=== PATIENT | female | born 1980 | race Two or more races ===

== ENCOUNTER 2017-08-07 19:07 | Emergency (ER) | payer MEDICAID ==
[~2017-08-07] VITALS: Ht 167.6 cm; Wt 72.6 kg
[2017-08-07 19:52] VITALS: Ht 167.6 cm; Wt 72.6 kg
[2017-08-08 00:37] VITALS: BP 140/89
== END 2017-08-08 00:37 | disposition home or self-care (01) ==
LOC: ED 19:07
DX: S92.352A Displaced fracture of fifth metatarsal bone, left foot, initial encounter for closed fracture (principal); S02.32XA Fracture of orbital floor, left side, initial encounter for closed fracture; Y04.8XXA Assault by other bodily force, initial encounter; Y93.89 Activity, other specified; Y92.89 Other specified places as the place of occurrence of the external cause; Y99.8 Other external cause status
CPT/HCPCS: Q0092

== ENCOUNTER 2019-01-13 13:56 | Emergency (ER) | payer MEDICAID ==
[~2019-01-13] VITALS: Ht 160 cm; Wt 78.5 kg
[2019-01-13 14:00] VITALS: Ht 160 cm; Wt 78.5 kg
[2019-01-13 14:43] LABS: BASOPHIL % 1.5 % (0-2); PLATELET COUNT 184 x10^3mcL (130-400); RED CELL DISTRIBUTION WIDTH 12.6 % (11.5-14.5)
[2019-01-13 14:50] LABS: CALCIUM 8.8 mg/dL (8.5-10.1); CARBON DIOXIDE 26.8 mmol/L (21-32); CHLORIDE SERUM 104 mmol/L (98-107); CREATININE SERUM 0.7 mg/dL (0.6-1.0); GFR1 > 60 mL/min; GLUCOSE SERUM 96 mg/dL (74-106); POTASSIUM SERUM 3.9 mmol/L (3.5-5.1); SODIUM SERUM 139 mmol/L (136-145)
[2019-01-13 14:55] LABS: ALBUMIN 3.6 g/dL (3.4-5.0); ALKALINE PHOSPHATASE 72 U/L (46-116); ALT/SGPT 25 U/L (14-59); AST/SGOT 13 U/L (15-37); BILIRUBIN TOTAL 0.42 mg/dL (0.20-1.00)
[2019-01-13 16:58] VITALS: BP 139/44
== END 2019-01-13 16:58 | disposition home or self-care (01) ==
LOC: ED 13:56
DX: R07.89 Other chest pain (principal)
CPT/HCPCS: 36415

== ENCOUNTER 2019-06-12 10:18 | Emergency (ER) | payer MEDICAID ==
[~2019-06-12] VITALS: Ht 160 cm; Wt 78.0 kg
[2019-06-12 10:21] VITALS: Ht 160 cm; Wt 78.0 kg
[2019-06-12 12:50] VITALS: BP 144/91
== END 2019-06-12 12:50 | disposition home or self-care (01) ==
LOC: ED 10:18
DX: B34.9 Viral infection, unspecified (principal); J98.01 Acute bronchospasm; Z88.1 Allergy status to other antibiotic agents
CPT/HCPCS: J7512; J7613; Q0092

== ENCOUNTER 2019-09-26 09:41 | Emergency (ER) | payer MEDICAID ==
[~2019-09-26] VITALS: Ht 160 cm; Wt 78.5 kg
[2019-09-26 09:51] VITALS: Ht 160 cm; Wt 78.5 kg
[2019-09-26 11:08] VITALS: BP 149/72
== END 2019-09-26 11:08 | disposition home or self-care (01) ==
LOC: ED 09:41
DX: F41.9 Anxiety disorder, unspecified (principal); K13.70 Unspecified lesions of oral mucosa; Z88.1 Allergy status to other antibiotic agents
CPT/HCPCS: 82962